=== PATIENT | female | born 1975 | race Caucasian/White ===

== ENCOUNTER 2017-01-26 14:54 | Emergency (ER) | payer OTHER ==
[~2017-01-26] VITALS: Ht 177.8 cm; Wt 100.0 kg
[~2017-01-26 14:54] MED LIST: IBUP-232 PO; RITO80S; TRUV200300; [UNRECOGNIZED DRUG - CODE]
[2017-01-26 14:56] VITALS: BP 165/88; PULSE 115; RESP 16; TEMP 99; O2SAT 100
[2017-01-26 15:03] VITALS: PULSE 110
--- NOTE | 2017-01-26 15:06 | PD ---
Physical Exam Date Seen by Provider: Jan 26, 2017 Time Seen by Provider: 15:00 Narrative 41 yo female here for evaluation of HTN. No history of this. Has had a headache. Having dizziness on and off. Not constant. Concerned because of the dizzy spell. No pain. history of migraines and fibroids. Vitals are stable in triage. Awaiting bed placement. Data Data Last Documented VS Vital Signs Date Time Temp Pulse Resp B/P Pulse Ox O2 Delivery O2 Flow Rate FiO2 01/26/17 14:56 99.0 115 16 165/88 100 MDM Medical Record Reviewed: Yes Supervised Visit with ELLY: No Boris Villa Jan 26, 2017 15:05
--- NOTE | 2017-01-26 15:52 | PD ---
HPI Chief Complaint: Dizziness Time Seen by Provider: 15:33 Travel History International Travel<30 days: No Contact w/Intl Traveler<30days: No Traveled to known affect area: No History of Present Illness HPI Is a well 41-year-old woman who presents to the emergency department complaining of a dizzy spell. She was at work about 1 PM when she had the abrupt onset of lightheadedness and dizziness that lasted about 10-15 seconds. She's had one previous episode but in the remote past. She otherwise has been feeling generally well and healthy. She is a history of migraines, RA, and well -controlled HIV. She states that work they took her blood pressure and it was a little bit elevated so she came to the emergency department. History Past Medical History Narrative Medical Migraines RA HIV, on medications, viral load undetectable : 1 Para: 1 Social History Alcohol Use: No Tobacco Use: No Allergies-Medications (Allergen,Severity, Reaction): Coded Allergies: Penicillin (Verified Allergy, Severe, Hives, 12/22/09) Sulfa (Verified Allergy, Severe, Hives, 12/22/09) Niacin (Verified Adverse Reaction, Severe, chest pains, 12/22/09) Tylenol (Verified Adverse Reaction, Severe, STOMACH CRAMPS, 12/22/09) Reported Meds & Prescriptions Reported Meds & Active Scripts Active Motrin (Ibuprofen) 600 Mg Tab 1 Tab PO TIDPRN PAIN NEEDED FOR PAIN Reported Norvir (Ritonavir) 80 Mg/Ml Niya Reyataz (Atazanavir) 200 Mg Cap Truvada (Miscellaneous Medication) Tab Review of Systems Except as stated in HPI: all other systems reviewed are Neg Physical Exam Narrative GENERAL: 41-year-old woman SKIN: Focused skin assessment warm/dry. HEAD: Atraumatic. Normocephalic. EYES: Pupils equal and round. No scleral icterus. No injection or drainage. ENT: No nasal bleeding or discharge. Mucous membranes pink and moist. NECK: Trachea midline. No JVD. CARDIOVASCULAR: Regular rate and rhythm. No murmur appreciated. RESPIRATORY: No accessory muscle use. Clear to auscultation. Breath sounds equal bilaterally. GASTROINTESTINAL: Abdomen soft, non-tender, nondistended. Hepatic and splenic margins not palpable. MUSCULOSKELETAL: No obvious deformities. No clubbing. No cyanosis. No edema. NEUROLOGICAL: Awake and alert. Cranial nerves intact. EOMs equal. No nystagmus. Normal finger to nose. Normal [id number]. PSYCHIATRIC: Appropriate mood and affect; insight and judgment normal. Data Data Last Documented VS Vital Signs Date Time Temp Pulse Resp B/P Pulse Ox O2 Delivery O2 Flow Rate FiO2 01/26/17 15:03 110 01/26/17 14:56 99.0 16 165/88 100 MDM Medical Decision Making Medical Screen Exam Complete: Yes Emergency Medical Condition: Yes Differential Diagnosis Lightheadedness, dizziness, BPPV, stroke, other Narrative Course Medical decision making INITIAL: Is a 40 year-old woman presents to the emergency department with a brief dizzy spell. She looks well. I think is related to her blood pressure. She has a normal neurologic exam. Is not in distress. She is extremely unlikely. BPPV is possible one episode without a clear precipitating change in head position several to know for sure. Nonetheless, she stay for outpatient follow-up. She'll keep a log of her blood pressures. She'll follow-up with Dr. Alva. Diagnosis Primary Impression: Dizziness Additional Instructions: Drink plenty of fluids stay well-hydrated. Follow-up with your primary doctor in 1-2 weeks if you're not completely well. Return to the emergency department for any new or worsening symptoms. Med/Other Pt SpecificInfo: No Change to Meds Disposition: 01 DISCHARGE HOME Condition: Stable Behzad Padilla MD Jan 26, 2017 15:52
[2017-01-26 16:27] VITALS: BP 125/76
== END 2017-01-26 16:28 | disposition home or self-care (01) ==
LOC: NEPD 14:54
DX: R42 Dizziness and giddiness (principal)
CPT/HCPCS: 99282